=== PATIENT | male | born 1940 | race Caucasian/White ===

== ENCOUNTER 2021-05-09 20:45 | Emergency (ER) | payer MEDICARE ==
[2021-05-09] MEDS ORDERED: Ondansetron PF 4 MG/2 ML Vial ONE (21:27)
[2021-05-09] MEDS ORDERED: Aspirin Chewable 81 MG TAB ONE (21:27)
[2021-05-09] MEDS ORDERED: Sodium Chloride 0.9% 1,000 ML ONE (21:27)
[2021-05-09 21:55] LABS: #Basophils 0.3 thou/uL (0.0-0.2); #Eosinphils 0.2 thou/uL (0.0-0.7); #Lymphocytes 0.9 thou/uL (1.20-3.40); #Monocytes 1.4 thou/uL (0.11-0.59); #Neutrophils 9.4 thou/uL (1.40-6.50); %Basophils 2.5 % (0.0-1.0); %Lymphocytes 7.3 % (21.0-51.0); %Monocytes 11.1 % (0.0-10.0); %Neutrophils 77.1 % (42.0-75.0); Hemoglobin 16.6 g/dL (14.0-18.0); Mean Corpuscular HGB CONC 31.2 g/dL (32.0-36.0); Mean Corpuscular Hemoglobin 27.7 pg (27.0-31.0); Mean Corpuscular Volume 88.9 fL (78.0-98.0); Mean Platelet Volume 6.6 fL (7.4-10.4); Platelet Count 459 thou/uL (130-400); RBC Distribution Width 12.3 % (11.5-14.5); Red Blood Cell (RBC) Count 5.97 mill/uL (4.70-6.10); White Blood Cell (WBC) Count 12.3 thou/uL (4.8-10.8)
[2021-05-09 22:04] LABS: INR-International Normal Ratio 2.8
[2021-05-09 22:05] LABS: D-Dimer Test 0.51 *mcg/mL (0.27-0.43); PTT 84.4 sec (22.9-36.1)
[2021-05-09 22:33] LABS: CKMB 3.4 ng/mL (0-6.6)
[2021-05-09 22:51] LABS: ALT (SGPT) 17 U/L (8-55); AST (SGOT) 24 U/L (5-34); Albumin 3.8 g/dL (3.4-4.8); Alkaline Phosphatase 47 U/L (40-110); Anion Gap 16 mmol/L (10-20); BUN (Urea Nitrogen) 35 mg/dL (8.4-25.7); Bilirubin, Total 1.1 mg/dL (0.2-1.2); CK (CPK) 119 U/L (30-200); CRP (Inflammatory) 12.89 mg/dL (= or < 0.5); Calc. Creatinine Clearance 0 mL/min (70-130); Carbon Dioxide 19 mmol/L (23-31); Chloride 100 mmol/L (98-107); Globulin 2.5 g/dL (2.4-3.5); Glucose 209 mg/dL (83-110); Potassium 4.3 mmol/L (3.5-5.1); Protein, Total 6.3 g/dL (5.8-8.1); Sodium 131 mmol/L (136-145)
[2021-05-09 23:04] LABS: Bilirubin Negative (Negative); Blood, Urine Negative (Negative); Clarity Clear (Clear); Glucose, Urine (Dipstick) >=1000 mg/dL (Negative); Ketone, Urine 15 mg/dL (Negative); Leukocyte Negative (Negative); Nitrite Negative (Negative); Protein, Urine (Dipstick) Negative (Neg-Trace); Urobilinogen 0.2 mg/dL (Less than 2)
[2021-05-09 23:06] LABS: Specific Gravity, Urine 1.019 (1.002-1.036)
[2021-05-09 23:35] LABS: SARS-CoV-2 NAA Rapid Test DETECTED (NotDetected)
[2021-05-10] MEDS ORDERED: Sodium Chloride 0.9% 100 ML ONE (00:42)
[2021-05-10] MEDS ORDERED: Dexamethasone 10 MG/ML VIAL ONE (00:42)
[2021-05-10] MEDS ORDERED: Azithromycin 500 MG VIAL ONE (00:42)
[2021-05-10] MEDS ORDERED: Sodium Chloride 0.9% 250 ML 250 ML ONE (00:42)
[2021-05-10] MEDS ORDERED: cefTRIAXone\\ROCEPHIN 2 GM VIAL ONE (00:42)
== END 2021-05-10 02:10 | disposition short-term general hospital (02) ==
LOC: MADERS 20:45
DX: U07.1 COVID-19 (principal); J12.82 Pneumonia due to coronavirus disease 2019; E86.0 Dehydration; R77.8 Other specified abnormalities of plasma proteins; R00.0 Tachycardia, unspecified; E78.5 Hyperlipidemia, unspecified; I10 Essential (primary) hypertension; E11.42 Type 2 diabetes mellitus with diabetic polyneuropathy; F17.220 Nicotine dependence, chewing tobacco, uncomplicated
CPT/HCPCS: 0240U; 71045; 71250; 80053; 81003; 82550; 82553; 83605; 83880; 84484; 85025; 85379; 85610; 85730; 86140; 87040; 93005 ×2; 94760; 96365; 96367; 96375; J0456; J0696; J1100; J2405; J3490; J7050